=== PATIENT | male | born 1995 | race African-American/Black ===

== ENCOUNTER 2017-01-28 04:34 | Emergency (ER) | payer SELFPAY ==
[~2017-01-28] VITALS: Ht 172.7 cm; Wt 66.2 kg
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
[2017-01-28 06:08] VITALS: BP 129/83
== END 2017-01-28 06:09 ==
LOC: ERH 04:34
DX: S01.81XA Laceration without foreign body of other part of head, initial encounter (principal); W22.8XXA Striking against or struck by other objects, initial encounter; Y92.9 Unspecified place or not applicable; Y93.9 Activity, unspecified